=== PATIENT | female | born 1960 | race African-American/Black ===

== ENCOUNTER 2018-09-20 09:13 | Inpatient (IN) | payer OTHER ==
[2018-09-20] VITALS (10 sets, daily range): BP systolic 128–165; BP diastolic 79–132; PULSE 97–118; RESP 16–30; Ht 175.3 cm; Wt 118.9 kg
[~2018-09-20] VITALS: Ht 175.3 cm; Wt 118.9 kg
[2018-09-20] MEDS ORDERED: morphine 4 MG/ML VIAL IV STA (09:21)
[2018-09-20] MEDS ORDERED: SOD CHLORIDE 0.9% 1,000 ML IV STA (09:21)
[2018-09-20] MEDS ORDERED: ONDANSETRON 4 MG INJ IV STA ×2 (09:21→12:08)
[2018-09-20] MEDS ORDERED: ASPIRIN 81 MG TAB PO STA (09:21)
[2018-09-20] MEDS ORDERED: HEPARIN 25000 UNITS/250 ML 250 ML IV STA (11:03)
[2018-09-20] MEDS ORDERED: SOD CHLORIDE 0.9% 100 ML ONE (11:12)
[2018-09-20] MEDS ORDERED: IOHEXOL 100 ML ONE (11:12)
[2018-09-20] MEDS ORDERED: IPRATROPIUM (NEB) 0.5 MG/2.5 ML AMP INH STA (11:23)
[2018-09-20] MEDS ORDERED: ALBUTEROL 0.5% (NEB) 2.5 MG/0.5 ML AMP INH STA (11:23)
--- NOTE | 2018-09-20 11:26 | ERD ---
ER Documentation Chief Complaint Chief Complaint INTERMITTENT CHEST PAIN AND SOB STARTING LAST NIGHT HPI This is a 58-year-old female that presented to the emergency department with a sudden onset of chest pain. She indicated the pain began yesterday evening roughly 12 hours prior to arrival. She stated it was a pressure-like sensation in the midportion of her chest and epigastric region. She indicated she was able to sleep throughout the night but uncomfortably as she woke up multiple times with the pain. She states the pain would last for roughly 20 to 30 minutes and then would spontaneously resolve. She stated the pain was 10 out of 10 in intensity. She indicated the pain did not radiate to the neck arm back or jaw. The patient smokes tobacco. She denies any other past medical history she takes no medications at home. She did not take any medications for analgesic control at home. She states she never had any similar symptoms in the past. She also indicates over the past several days she has been experiencing shortness of breath. She denies any recent travel or prolonged immobilization. She denies any swelling of her lower extremities. The patient was brought to the emergency department by EMS. They administered 160 mg of aspirin. 3 sprays of nitroglycerin were given and the patient stated this provided no improvement of her pain. ROS All systems reviewed and are negative except as per history of present illness. Medications Home Meds No Active Prescriptions or Reported Meds Allergies Allergies: Coded Allergies: No Known Allergy (Unverified , 09/20/18) PMhx/Soc Medical and Surgical Hx: pt denies Medical Hx, pt denies Surgical Hx Hx Alcohol Use: Yes (OCCASIONAL) Hx Substance Use: No Hx Tobacco Use: Yes (10 CIGS/DAY) Smoking Status: Current every day smoker Physical Exam Vitals Vital Signs Date Temp Pulse Resp B/P (MAP) Pulse Ox O2 O2 Flow FiO2 Time Delivery Rate 09/20/18 97.6 104 20 160/104 95 Nasal 2.0 11:01 (122) Cannula 09/20/18 Nasal 2 09:25 Cannula 09/20/18 98.4 89 30 126/81 99 09:21 (96) Physical Exam Constitutional:Well-developed. Well-nourished. Patient appeared to be in a sig nificant amount discomfort secondary to pain HEENT:Normocephalic. Atraumatic.Pupils were equal round reactive to light. Moist mucous membranes.No tonsillar exudates. Neck: No nuchal rigidity. No lymphadenopathy. No posterior cervical spine tenderness or step-offs. Respiratory: Not using accessory muscles of respiration.Lungs were clear to auscultation bilaterally. No rhonchi. No rales. No wheezing. Cardiovascular: Regular rate regular rhythm.No murmurs. No rubs were appreciated.S1, S2 normal. Distal pulses are palpable 2+ bilaterally. GI: Abdomen was soft. Nontender. Non Distended. No pulsatile abdominal masses or bruits. No rebound. No guarding. Bowel sounds were present and normal. Muscle skeletal: Full range of motion of both the upper and lower extremities bilaterally.Normal muscle tone.No assymetrical calf tenderness or swelling. Skin: No petechia, no purpura. No lesions on the palms or the soles of the feet. No maculopapular rash. NEURO: Patient was alert, awake, orientated x3.No facial droop. Gait observed and normal with no ataxia.Speech had regular rate and rhythm. No focal neurological deficits. Result Diagram: 09/20/18 0935 09/20/18 0935 Results 24 hrs Laboratory Tests Test 09/20/18 09:35 White Blood Count 9.0 10^3/ul Red Blood Count 4.95 10^6/ul Hemoglobin 13.8 g/dl Hematocrit 42.7 % Mean Corpuscular Volume 86.3 fl Mean Corpuscular Hemoglobin 27.9 pg Mean Corpuscular Hemoglobin Concent 32.3 g/dl Red Cell Distribution Width 13.2 % Platelet Count 249 10^3/UL Mean Platelet Volume 9.7 fl Immature Granulocytes % 0.200 % Neutrophils % 77.4 % Lymphocytes % 18.1 % Monocytes % 3.8 % Eosinophils % 0.1 % Basophils % 0.4 % Nucleated Red Blood Cells % 0.0 /100WBC Immature Granulocytes # 0.020 10^3/ul Neutrophils # 7.0 10^3/ul Lymphocytes # 1.6 10^3/ul Monocytes # 0.3 10^3/ul Eosinophils # 0.0 10^3/ul Basophils # 0.0 10^3/ul Nucleated Red Blood Cells # 0.0 10^3/ul Prothrombin Time 13.4 Sec Prothrombin Time Ratio 1.0 INR International Normalized Ratio 1.01 Activated Partial Thromboplast Time 27.6 Sec Sodium Level 139 mmol/L Potassium Level 4.0 mmol/L Chloride Level 107 mmol/L Carbon Dioxide Level 24 mmol/L Anion Gap 8 Blood Urea Nitrogen 18 mg/dl Creatinine 0.86 mg/dl Est Glomerular Filtrat Rate mL/min > 60 mL/min Glucose Level 195 mg/dl Calcium Level 9.4 mg/dl Total Bilirubin 0.5 mg/dl Direct Bilirubin 0.00 mg/dl Indirect Bilirubin 0.5 mg/dl Aspartate Amino Transf (AST/SGOT) 51 IU/L Alanine Aminotransferase (ALT/SGPT) 22 IU/L Alkaline Phosphatase 105 IU/L Creatine Kinase 433 IU/L Creatine Kinase Index 8.9 Creatinine Kinase MB (Mass) 38.70 ng/ml Troponin I 1.330 ng/ml B-Type Natriuretic Peptide 681 PG/ML Total Protein 7.6 g/dl Albumin 4.0 g/dl Globulin 3.60 g/dl Albumin/Globulin Ratio 1.11 Triglycerides Level 60 mg/dl Cholesterol Level 151 mg/dl LDL Cholesterol, Calculated 95 mg/dl HDL Cholesterol 44 mg/dl Cholesterol/HDL Ratio 3.4 RATIO Lipase 47 U/L Current Medications Medications Dose Sig/[place] Start Time Status Last (Trade) Ordered Route PRN Stop Time Admin Dose Reason Admin Sodium 1,000 ml @ Q1H STAT 09/20/18 DC 09/20/18 Chloride 1,000 mls/hr IV 09:21 09:43 09/20/18 10:20 Aspirin 162 mg ONCE STAT 09/20/18 DC 09/20/18 (Aspirin) PO 09:21 09:43 09/20/18 09:23 Morphine 4 mg ONCE STAT 09/20/18 DC 09/20/18 Sulfate IV 09:21 09:42 (morphine) 09/20/18 09:23 Ondansetron 4 mg ONCE STAT 09/20/18 DC 09/20/18 HCl (Zofran IV 09:21 09:42 Inj) 09/20/18 09:23 Heparin 250 ml @ ONCE STAT 09/20/18 Sodium 10 mls/hr IV 11:03 (Porcine) 09/21/18 12:02 IV Flush 10 ml STK-MED 09/20/18 DC (NS 10 ml) ONCE .ROUTE 11:12 09/20/18 11:13 Sodium 100 ml @ ud STK-MED 09/20/18 DC Chloride ONCE .ROUTE 11:12 09/20/18 11:13 Iohexol 100 ml @ ud K-MED 09/20/18 DC ONCE .ROUTE 11:12 09/20/18 11:13 Procedures/MDM The patient presented to the emergency department with chest pain. My clinical evaluation and workup was to distinguish minor causes of chest pain from acute life threatening conditions such as myocardial infarction, pulmonary embolism, aortic dissection, esophageal rupture, cardiac tamponade. The patient was placed on a rn cardiac and continuous pulse oximetry. IV access established by nursing staff. The patient was given aspirin and had already been given nitroglycerin with no relief. Therefore the patient was given morphine for analgesia control. After which she stated her pain had improved to 3 out of 10 in intensity. Chest radiograph showed no infiltrates pneumothorax or pleural effusions however there was cardiomegaly with mild pulmonary vascular congestion. The BNP was 681. The patient was given nebulizer treatments of albuterol and Atrovent. However findings appear to be more result of unstable angina versus congestive heart failure as the patient's troponin was elevated at 1.330 and CK-MB was elevated at 38. The first EKG was performed at 9:18 AM reviewed by myself. 12 Lead EKG tracing ordered and reviewed by myself showed: Normal sinus rhythm of 91 bpm and no arrhythmia. IN interval normal. QRS duration normal. No ST segment elevation Repeat EKG was taken at 10:54 AM. 12 Lead EKG tracing ordered and reviewed by myself showed: Sinus tachycardia of 109. . Bpm and no arrhythmia. IN interval normal. QRS duration normal. No ST segment elevation No ST segment depression. No changes consistent with acute ischemia. T wave in version in the lateral leads V5 V6 I spoke with the cable layer Dr. Souza. She suggested the patient be placed on a heparin drip which was started by myself. I will obtain CT a of her chest which showed no evidence of a pulmonary embolism. Due to the persistence of the patient's pain and her unstable angina she will be going to the cardiac [facility] and will be admitted to the hospitalist in serious condition with anticipated stay of greater than [address] Brady will be the admitting physician. Patient will go to the intensive care unit. Critical Care: Time: 80 minutes Treatments/Evaluations: Close monitoring and treatment of unstable vital signs, cardiorespiratory, and neurologic status, while maintaining tight balance of fluid, respiratory, and cardiac interventions. Time does not include performing any of the above billable procedures. Departure Diagnosis: Primary Impression: Unstable angina Condition: Serious HÉCTOR GALVAN MD September 20, 2018 11:25
[2018-09-20] MEDS ORDERED: HYDROmorphONE 1 MG/ML SYG IV STA (12:08)
[2018-09-20] MEDS ORDERED: ONDANSETRON 4 MG INJ IV PRN ×2 (12:30→15:00)
[2018-09-20] MEDS ORDERED: ACETAMINOPHEN 325 MG TAB PO PRN (12:30)
[2018-09-20] MEDS ORDERED: DIPHENHYDRAMINE 50 MG CAP PO ONE (12:30)
[2018-09-20] MEDS ORDERED: morphine 2 MG INJ IV PRN ×2 (12:30→15:00)
[2018-09-20] MEDS ORDERED: ATORVASTATIN 80 MG TAB PO ONE ×2 (12:30→13:00)
[2018-09-20] MEDS ORDERED: NACL 0.9% 3 ML SYG IV SCH (12:30)
[2018-09-20] MEDS ORDERED: ACETAMINOPHEN 650 MG SUPP PR PRN (12:30)
[2018-09-20] MEDS ORDERED: DIAZEPAM 5 MG TAB PO ONE (12:30)
--- NOTE | 2018-09-20 12:36 | HP ---
Date/Time of Note Date/Time of Note DATE: 09/20/18 TIME: 12:36 Assessment/Plan VTE Prophylaxis SCD applied (from Nsg): Yes Pharmacological prophylaxis: heparin Lines/Catheters IV Catheter Type (from Nrsg): Saline Lock Assessment/Plan Hospital Course SUBJECTIVE: Seen patient in ER. Having chest pain improved with morphine and as pirin. OBJECTIVE: Vital signs-see below PHYSICAL EXAM: Constitutional: Adequately built,not in acute distress. HEENT: Head atraumatic and normocephalic. Eyes: Extraocular muscles intact. Anicteric sclerae. Pupils equal bilaterally, reactive to light. NECK: +JVD. Supple without lymph node. CHEST: Clear and good breath sounds equally. No wheezing. No rhonchi. HEART: S1, S2. Regular rate and rhythm. ABDOMEN: Soft/non tender with no rebound tenderness. Bowel sounds were present. EXTREMITIES: No cyanosis, clubbing or edema. NEUROLOGIC: Alert and oriented x3. No focal deficit. No sensory deficit. PSYCHOSOCIAL: No signs of depression. INTEGUMENTARY: No open wounds. ASSESSMENT AND PLAN:58 yo morbidly obese F w/ no medical history other than current everyday tobacco use admitted with sudden onset of chest pain, found to have NSTEMI NSTEMI -Plan is cardiac catheterization today 2 PM with -Trend troponin -2D echo -Aspirin/nitro/heparin gtt/beta-blockers/High intensity statin Morbid obesity with BMI 41.4 -Lipid panel/A1c -Weight reduction advised Possible Congestive heart failure -We will obtain 2D echo to assess EF Tobacco use -cessation advised DVT prophylaxis: On heparin protocol PUD prophylaxis: H2 blockers Rest of the management depend on hospital course. Approximately 60 m spent on this history and physical. Patient is seen in collaboration with Dr. Brady. Result Diagram: 09/20/18 0935 09/20/18 0935 Results 24hrs Laboratory Tests Test 09/20/18 09:35 White Blood Count 9.0 Red Blood Count 4.95 Hemoglobin 13.8 Hematocrit 42.7 Mean Corpuscular Volume 86.3 Mean Corpuscular Hemoglobin 27.9 L Mean Corpuscular Hemoglobin Concent 32.3 Red Cell Distribution Width 13.2 Platelet Count 249 Mean Platelet Volume 9.7 Immature Granulocytes % 0.200 Neutrophils % 77.4 H Lymphocytes % 18.1 Monocytes % 3.8 Eosinophils % 0.1 Basophils % 0.4 Nucleated Red Blood Cells % 0.0 Immature Granulocytes # 0.020 Neutrophils # 7.0 Lymphocytes # 1.6 Monocytes # 0.3 Eosinophils # 0.0 Basophils # 0.0 Nucleated Red Blood Cells # 0.0 Prothrombin Time 13.4 Prothrombin Time Ratio 1.0 INR International Normalized Ratio 1.01 Activated Partial Thromboplast Time 27.6 Sodium Level 139 Potassium Level 4.0 Chloride Level 107 Carbon Dioxide Level 24 Anion Gap 8 Blood Urea Nitrogen 18 Creatinine 0.86 Est Glomerular Filtrat Rate mL/min > 60 Glucose Level 195 Calcium Level 9.4 Total Bilirubin 0.5 Direct Bilirubin 0.00 Indirect Bilirubin 0.5 Aspartate Amino Transf (AST/SGOT) 51 H Alanine Aminotransferase (ALT/SGPT) 22 Alkaline Phosphatase 105 Creatine Kinase 433 H Creatine Kinase Index 8.9 Creatinine Kinase MB (Mass) 38.70 H Troponin I 1.330 *H B-Type Natriuretic Peptide 681 H Total Protein 7.6 Albumin 4.0 Globulin 3.60 H Albumin/Globulin Ratio 1.11 Triglycerides Level 60 Cholesterol Level 151 LDL Cholesterol, Calculated 95 HDL Cholesterol 44 Cholesterol/HDL Ratio 3.4 Lipase 47 HPI/ROS Admit Date/Time Admit Date/Time Hx of Present Illness This is a 58-year-old morbidly obese -[place] female with no reported medical history other than smoking history, was brought in by ambulance with sudden onset of chest pain that woke her up from bed this morning. Patient also had associated shortness of breath. There was no radiation of her pain. Patient denied dizziness, headache, loss of consciousness, focal deficit, fever, chills, palpitation, nausea, vomiting, abdominal pain, diarrhea or other constitutional symptoms. In the emergency room, patient was noted with initial troponin I 0.330, CK 433, CK-MB 38.70, BNP 681. Twelve-lead EKG showed sinus tachycardia at 109 with T wave inversion in the lateral leads V5 V6. Chest x-ray showed mild pulmonary vascular congestion. Chest CT negative for PE. Patient was given aspirin,morphine and started on hep drip.Cradiology consulted w/. ROS A 12 point review of system was assessed and is negative other than what is mentioned in the HPI. PMH/Family/Social Past Medical History See HPI Medications Current Medications Heparin Sodium (Porcine) 250 ml @ 10 mls/hr ONCE STAT IV Last administered on 09/20/18at 11:54; Admin Dose 10 MLS/HR; Start 09/20/18 at 11:03; Stop 09/21/18 at 12:02 Diazepam (Valium) 5 mg OC ONCE PO ; Start 09/20/18 at 12:30; Stop 09/20/18 at 12:31; Status UNV Diphenhydramine HCl (Benadryl) 50 mg OC ONCE PO ; Start 09/20/18 at 12:30; Stop 09/20/18 at 12:31; Status UNV Sodium Chloride 1,000 ml @ 75 mls/hr [id number] IV ; Start 09/20/18 at 12:27; Status UNV Atorvastatin Calcium (Lipitor) 80 mg ONCE ONCE PO ; Start 09/20/18 at 12:30; Stop 09/20/18 at 12:31; Status UNV IV Flush (NS 3 ml) 3 ml PER PROTOCOL IV ; Start 09/20/18 at 12:30; Status UNV Ondansetron HCl (Zofran Inj) 4 mg Q6H PRN IV NAUSEA/VOMITING; Start 09/20/18 at 12:30; Status UNV Acetaminophen (Tylenol Tab) 650 mg Q6H PRN PO .PAIN 1-3 OR TEMP; Start 09/20/18 at 12:30; Status UNV Acetaminophen (Tylenol Supp) 650 mg Q6H PRN NE .PAIN 1-3 OR TEMP; Start at 12:30; Status UNV Morphine Sulfate (morphine) 2 mg Q4H PRN IV .SEVERE PAIN 7-10; Start 09/20/18 at 12:30; Status UNV Famotidine (Pepcid) 20 mg Q12 PO ; Start 09/20/18 at 21:00; Status UNV Miscellaneous Information (* Miscellaneous Pharmacy Order) Discontinue current oral sulfonylur... ONCE ONCE XX ; Start 09/20/18 at 12:30; Stop 09/20/18 at 12:31; Status UNV Diagnostic Test (Pha) (Accu-Chek) 1 ea 02 XX ; Start 09/21/18 at 02:00; Status UNV Miscellaneous Information (* Miscellaneous Pharmacy Order) HYPOGLYCEMIA PROTOCOL w... ONCE ONCE XX ; Start 09/20/18 at 12:30; Stop 09/20/18 at 12:31; Status UNV Insulin Aspart (Novolog Insulin Pen) NOVOLOG *MILD* ALGORI... Q4 SC ; Start 09/05 10/24 at 13:00; Status UNV Miscellaneous Information (* Miscellaneous Pharmacy Order) Discontinue all previ... ONCE ONCE XX ; Start 09/20/18 at 12:30; Stop 09/20/18 at 12:31; Status UNV Aspirin (Aspirin) 81 mg DAILY PO ; Start 09/21/18 at 09:00; Status UNV Metoprolol Tartrate (Lopressor) 25 mg BID PO ; Start 09/20/18 at 12:30; Status UNV Atorvastatin Calcium (Lipitor) 80 mg HS PO ; Start 09/20/18 at 21:00; Status UNV Coded Allergies: No Known Allergy (Unverified , 09/20/18) Past Surgical History None Social History Current every day tobacco use. 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
[2018-09-20] MEDS ORDERED: DEXTROSE 50% 50 ML SYRINGE IV PRN ×2 (13:00)
[2018-09-20] MEDS ORDERED: GLUCOSE GEL 15 GRAM TUBE PO PRN ×2 (13:00)
[2018-09-20] MEDS ORDERED: GLUCAGON 1 MG INJ IM PRN (13:00)
[2018-09-20] MEDS ORDERED: GLUCOSE GEL 15 GRAM TUBE BUCCAL PRN (13:00)
[2018-09-20] MEDS ORDERED: LIDOCAINE 1% (MDV) 20 ML INJ ONE (13:08)
[2018-09-20] MEDS ORDERED: IODIXANOL LOCM 100 ML BTL ONE ×2 (13:08→14:39)
[2018-09-20] MEDS ORDERED: HEPARIN 1000 UNITS/ML 10 ML INJ ONE (13:22)
[2018-09-20] MEDS ORDERED: VERAPAMIL 5 MG INJ ONE (13:23)
[2018-09-20] MEDS ORDERED: NITROGLYCERIN (IC) 100 MCG/ML INJ ONE (13:23)
--- NOTE | 2018-09-20 13:37 | CONS ---
Assessment/Plan Assessment/Plan Hospital Course (Demo Recall) 58 yo with NSTEMI Impression: NSTEMI Tobacco use Morbid obesity Plan: Coronary angiography with possible angioplasty, risks and benefits discussed with her and her , she agrees to proceed, all questions answered. Echo ordered. Further plans to come into place after the angiogram Consultation Date/Type/Reason Admit Date/Time September 20, 2018 Date of Consultation: September 20, 2018 Type of Consult Cardiology Reason for Consultation NSTEMI Requesting Provider: HÉCTOR GALVAN MD Date/Time of Note DATE: 09/20/18 TIME: 13:30 Hx of Present Illness 58 yo with no significant medical history, has not seen a doctor in more than 3 years, smokes, presents with chest pressure/burning that started last night, lasted a few hours, then went away, restarted this morning and has been persistent, associated with dyspnea. Patient has received morphine in ED but still with pain. She is not active in her daily living, works in [employer] for [employer]. Constitutional: no complaints Eyes: no complaints ENT: no complaints Respiratory: no complaints Cardiovascular: chest pain Gastrointestinal: no complaints Genitourinary: no complaints Musculoskeletal: no complaints Skin: no complaints Neurologic: no complaints Endocrine: no complaints Lymphatic: no complaints Psychological: no complaints Immunologic: no complaints Past Medical History Home Meds No Active Prescriptions or Reported Meds Medications Current Medications Heparin Sodium (Porcine) 250 ml @ 10 mls/hr ONCE STAT IV Last administered on 09/20/18at 11:54; Admin Dose 10 MLS/HR; Start 09/20/18 at 11:03; Stop 09/21/18 at 12:02 Sodium Chloride 1,000 ml @ 75 mls/hr [id number] IV ; Start 09/20/18 at 12:27 IV Flush (NS 3 ml) 3 ml PER PROTOCOL IV ; Start 09/20/18 at 12:30 Ondansetron HCl (Zofran Inj) 4 mg Q6H PRN IV NAUSEA/VOMITING; Start 09/20/18 at 12:30 Acetaminophen (Tylenol Tab) 650 mg Q6H PRN PO .PAIN 1-3 OR TEMP; Start 09/20/18 at 12:30 Acetaminophen (Tylenol Supp) 650 mg Q6H PRN [place] .PAIN 1-3 OR TEMP; Start 09/20/18 at 12:30 Morphine Sulfate (morphine) 2 mg Q4H PRN IV .SEVERE PAIN 7-10; Start 09/20/18 at 12:30 Famotidine (Pepcid) 20 mg Q12 PO ; Start 09/20/18 at 21:00 Diagnostic Test (Pha) (Accu-Chek) 1 ea 02 XX ; Start 09/21/18 at 02:00 Insulin Aspart (Novolog Insulin Pen) NOVOLOG *MILD* ALGORI... Q4 SC ; Start 09/20/18 at 13:00 Aspirin (Aspirin) 81 mg DAILY PO ; Start 09/21/18 at 09:00 Metoprolol Tartrate (Lopressor) 25 mg BID PO ; Start 09/20/18 at 12:30 Atorvastatin Calcium (Lipitor) 80 mg HS PO ; Start 09/20/18 at 21:00 Miscellaneous Information 1 ea NOTE XX ; Start 09/20/18 at 13:00 Glucose (Glutose) 15 gm Q15M PRN PO DECREASED GLUCOSE; Start 09/20/18 at 13:00 Glucose (Glutose) 22.5 gm Q15M PRN PO DECREASED GLUCOSE; Start 09/20/18 at 13:00 Dextrose (D50w Syringe) 25 ml Q15M PRN IV DECREASED GLUCOSE; Start 09/20/18 at 13:00 Dextrose (D50w Syringe) 50 ml Q15M PRN IV DECREASED GLUCOSE; Start 09/20/18 at 13:00 Glucagon (Glucagen) 1 mg Q15M PRN IM DECREASED GLUCOSE; Start 09/20/18 at 13:00 Glucose (Glutose) 15 gm Q15M PRN BUCCAL DECREASED GLUCOSE; Start 09/20/18 at 13:00 Allergies: Coded Allergies: No Known Allergy (Unverified , 09/20/18) Past Surgical History Past Surgical Hx: no surgical history Family History Significant Family History: no pertinent family hx Social History Alcohol Use: rarely Smoking Status: Current every day smoker Drug Use: none Exam/Review of Systems Vital Signs Vitals Vital Signs Date Temp Pulse Resp B/P (MAP) Pulse Ox O2 O2 Flow FiO2 Time Delivery Rate 09/20/18 113 20 137/94 98 Nasal 2.0 13:10 (108) Cannula 09/20/18 32 11:54 09/20/18 97.6 11:01 Exam Constitutional: alert, oriented, well developed, other (obese) Psych: nl mood/affect Head: normocephalic, atraumatic Eyes: EOMI, nl lids, nl sclera ENMT: nl external ears & nose, nl lips & teeth Neck: supple; No jvd, No bruits Respiratory: clear to auscultation, normal air movement Cardiovascular: regular rate and rhythm, nl pulses; No murmurs/extra sounds Gastrointestinal: soft, nl liver, spleen, non-tender Musculoskeletal: nl extremities to inspection Extremities: normal pulses Neurological: nl mental status, nl speech Skin: nl turgor; No rash or lesions Labs Result Diagram: 09/20/18 0935 09/20/18 0935 Results 24hrs Laboratory Tests Test 09/20/18 09:35 White Blood Count 9.0 Red Blood Count 4.95 Hemoglobin 13.8 Hematocrit 42.7 Mean Corpuscular Volume 86.3 Mean Corpuscular Hemoglobin 27.9 L Mean Corpuscular Hemoglobin Concent 32.3 Red Cell Distribution Width 13.2 Platelet Count 249 Mean Platelet Volume 9.7 Immature Granulocytes % 0.200 Neutrophils % 77.4 H Lymphocytes % 18.1 Monocytes % 3.8 Eosinophils % 0.1 Basophils % 0.4 Nucleated Red Blood Cells % 0.0 Immature Granulocytes # 0.020 Neutrophils # 7.0 Lymphocytes # 1.6 Monocytes # 0.3 Eosinophils # 0.0 Basophils # 0.0 Nucleated Red Blood Cells # 0.0 Prothrombin Time 13.4 Prothrombin Time Ratio 1.0 INR International Normalized Ratio 1.01 Activated Partial Thromboplast Time 27.6 Sodium Level 139 Potassium Level 4.0 Chloride Level 107 Carbon Dioxide Level 24 Anion Gap 8 Blood Urea Nitrogen 18 Creatinine 0.86 Est Glomerular Filtrat Rate mL/min > 60 Glucose Level 195 Calcium Level 9.4 Total Bilirubin 0.5 Direct Bilirubin 0.00 Indirect Bilirubin 0.5 Aspartate Amino Transf (AST/SGOT) 51 H Alanine Aminotransferase (ALT/SGPT) 22 Alkaline Phosphatase 105 Creatine Kinase 433 H Creatine Kinase Index 8.9 Creatinine Kinase MB (Mass) 38.70 H Troponin I 1.330 *H B-Type Natriuretic Peptide 681 H Total Protein 7.6 Albumin 4.0 Globulin 3.60 H Albumin/Globulin Ratio 1.11 Triglycerides Level 60 Cholesterol Level 151 LDL Cholesterol, Calculated 95 HDL Cholesterol 44 Cholesterol/HDL Ratio 3.4 Lipase 47 Imaging Imaging Initial ekg with nsr at 91 bpm, st elevation of 1 mm in V1, subtle ST depressions in inferior and lateral leads. Repeat ekg with sinus tachycardia at 109 bpm, now with 1/[address] elevation in V2-V4 as well as 1 mm in V1, and subtle reciprocal changes. Medications Medications Current Medications Heparin Sodium (Porcine) 250 ml @ 10 mls/hr ONCE STAT IV Last administered on 09/20/18at 11:54; Admin Dose 10 MLS/HR; Start 09/20/18 at 11:03; Stop 09/21/18 at 12:02 Sodium Chloride 1,000 ml @ 75 mls/hr [id number] IV ; Start 09/20/18 at 12:27 IV Flush (NS 3 ml) 3 ml PER PROTOCOL IV ; Start 09/20/18 at 12:30 Ondansetron HCl (Zofran Inj) 4 mg Q6H PRN IV NAUSEA/VOMITING; Start 09/20/18 at 12:30 Acetaminophen (Tylenol Tab) 650 mg Q6H PRN PO .PAIN 1-3 OR TEMP; Start 09/20/18 at 12:30 Acetaminophen (Tylenol Supp) 650 mg Q6H PRN [place] .PAIN 1-3 OR TEMP; Start 09/20/18 at 12:30 Morphine Sulfate (morphine) 2 mg Q4H PRN IV .SEVERE PAIN 7-10; Start 09/20/18 at 12:30 Famotidine (Pepcid) 20 mg Q12 PO ; Start 09/20/18 at 21:00 Diagnostic Test (Pha) (Accu-Chek) 1 ea 02 XX ; Start 09/21/18 at 02:00 Insulin Aspart (Novolog Insulin Pen) NOVOLOG *MILD* ALGORI... Q4 SC ; Start 09/20/18 at 13:00 Aspirin (Aspirin) 81 mg DAILY PO ; Start 09/21/18 at 09:00 Metoprolol Tartrate (Lopressor) 25 mg BID PO ; Start 09/20/18 at 12:30 Atorvastatin Calcium (Lipitor) 80 mg HS PO ; Start 09/20/18 at 21:00 Miscellaneous Information 1 ea NOTE XX ; Start 09/20/18 at 13:00 Glucose (Glutose) 15 gm Q15M PRN PO DECREASED GLUCOSE; Start 09/20/18 at 13:00 Glucose (Glutose) 22.5 gm Q15M PRN PO DECREASED GLUCOSE; Start 09/20/18 at 13:00 Dextrose (D50w Syringe) 25 ml Q15M PRN IV DECREASED GLUCOSE; Start 09/20/18 at 13:00 Dextrose (D50w Syringe) 50 ml Q15M PRN IV DECREASED GLUCOSE; Start 09/20/18 at 13:00 Glucagon (Glucagen) 1 mg Q15M PRN IM DECREASED GLUCOSE; Start 09/20/18 at 13:00 Glucose (Glutose) 15 gm Q15M PRN BUCCAL DECREASED GLUCOSE; Start 09/20/18 at 13:00 JOMAR SOL September 20, 2018 13:37
[2018-09-20] MEDS ORDERED: MIDAZOLAM 1 MG/ML 2 ML INJ ONE (13:45)
[2018-09-20] MEDS ORDERED: TICAGRELOR 90 MG TABLET ONE (14:44)
[2018-09-20] MEDS ORDERED: AL HYDROX/MG HYDROX/SIMETH 30 ML CUP PO PRN (15:00)
--- NOTE | 2018-09-20 15:04 | OPR ---
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 Procedure Description Findings: LM - normal LAD 99% mid lesion with BLANCA 1 flow LCX nl Ramus nl RCA - dominant and not directly engaged, but angiographically normal LVEDP - elevated LVEF - 30% with large area of anterolateral, apical, and inferoapical akinesis Informed consent obtained. Patient brought to the phlebotomist medical lab assistant urgently. Versed given for moderate sedation. Using modified seldinger technique, the right radial artery was accessed, and 6F sheath placed. Additional heparin given IV after ACT checked, and verapamil and nitroglycerin given. Baldwin catheter advanced over J wire, engaged the LM. Images obtained in multiple projections. Next a JR4 advanced but would not engage, provided a nonselective shot of the RCA demonstrating no significant lesions. All catheters changed over a long J wire. At this point I decided to proceed with PCI of the LAD. An FL 3.5 guide engaged the left main, additional heparin given. The wire was advanced down the vessel,a 2.5x12 balloon inflated twice in the lesion, then it was stented with a 3.25x23 mm Xience stent, and postdilated with a 3.5 x 15 mm balloon twice. Angiography performed in multiple views demonstrating good apposition of the stent and no dissection. Then another shot of the RCA performed, with a Hung Right, which also did not engage. A pigtail catheter crossed the LV, pressures measured, LV gram performed with injection of contrast, and then a pullback gradient measured. Nitro given through the sidearm of the sheath, and then it was removed and replaced with a TR band. Patient left the room in stable condition. JOMAR SOL September 20, 2018 15:04
[2018-09-20] MEDS: METOPROLOL 25 MG TAB PO SCH ×2 (15:32→20:41)
[2018-09-20] MEDS: INSULIN ASPART [NOVOLOG] 3 ML PEN SC SCH ×3 (15:33→20:38)
[2018-09-20] MEDS: LOSARTAN 25 MG TAB PO SCH ×2 (17:20→20:40)
[2018-09-20] MEDS: SOD CHLORIDE 0.9% 1,000 ML IV SCH (17:43)
[2018-09-20] MEDS: FAMOTIDINE 20 MG TAB PO SCH (20:41)
[2018-09-20] MEDS: TICAGRELOR 90 MG TABLET PO SCH (20:44)
[2018-09-20] MEDS ORDERED: ATORVASTATIN 80 MG TAB PO SCH ×2 (21:00)
[2018-09-20] MEDS ORDERED: LORAZEPAM 0.5 MG TAB PO ONE (22:30)
[2018-09-20] MEDS ORDERED: NITROGLYCERIN (SL) 0.4 MG TAB ONE (23:31)
[2018-09-21] VITALS (18 sets, daily range): BP systolic 84–133; BP diastolic 48–103; PULSE 85–123; RESP 16–27
[2018-09-21] MEDS ORDERED: NITROGLYCERIN (SL) 0.4 MG TAB SL ONE
[2018-09-21] MEDS ORDERED: FUROSEMIDE 40 MG INJ IV ONE
[2018-09-21] MEDS: INSULIN ASPART [NOVOLOG] 3 ML PEN SC SCH ×4 (01:38→13:00)
[2018-09-21] MEDS: SOD CHLORIDE 0.9% 1,000 ML IV SCH ×2 (01:40→05:39)
[2018-09-21] MEDS ORDERED: ACCU-CHEK XX SCH (02:00)
[2018-09-21] MEDS ORDERED: ASPIRIN (EC) 81 MG TAB PO SCH (09:00)
[2018-09-21] MEDS ORDERED: ALBUTEROL/IPRATROPIUM (NEB) 3 ML AMP HHN SCH (09:00)
[2018-09-21] MEDS ORDERED: ASPIRIN 81 MG TAB PO SCH (09:00)
--- NOTE | 2018-09-21 09:12 | RADRPT ---
Echocardiogram Report Patient Name: JUAN MARCELINOPatient ID: [id number] : 1960 (58y 6m)Study Date: 09/20/2018 12:54:17 PM Gender: FAccession #: [id number] Tech: LE Location: [facility] Ref.Physician: KONSTANTIN SALDIVAR Height(Cm): BSA: Weight(Kg): Quality: Technically Difficult StudyOrder Physician: KONSTANTIN SALDIVAR Account #: Procedures: Echocardiographic Report: Transthoracic echocardiogram with complete 2D, M-Mode, and doppler examination. Indications: Chest Pain. Measurements: 2D/M Mode Doppler Measurement Value Normal Range Measurement Value Normal Range LVIDd 2D 4.4 [ 3.8 - 5.2 ] cm AV Mean William 0.8 [ 70.0 - 90.0 ] cm/sec LVIDs 2D 4.0 [ 2.2 - 3.5 ] cm AV Mean PG 3.0 [ 2.0 - 4.0 ] mmHg LVPWd 2D 1.3 [ 0.6 - 0.9 ] cm AV Peak William 1.1 [ 100.0 - 170.0 ] cm/sec IVSd 2D 1.3 [ 0.6 - 0.9 ] cm AV Peak PG 5.0 [ 2.0 - 9.0 ] mmHg EF 2D 21.3 [ 54.0 - 74.0 ] percent AV VTI 17.0 cm LVOT Diam 1.9 [ 2.1 - 2.5 ] cm LVOT Peak William 0.7 [ 70.0 - 110.0 ] cm/sec LVOT Peak PG 2.0 [ 2.0 - 6.0 ] mmHg MV E Peak William 0.8 [ 60.0 - 130.0 ] cm/sec MV A Peak William 0.7 [ 100.0 - 120.0 ] cm/sec MV E/A 1.2 [ 0.8 - 1.5 ] ratio MV Decel Time 134 [ 104 - 258 ] msec Lat E` William 0.1 [ 10.0 - 15.0 ] cm/sec Lateral E/E` 15.1 [ 1.0 - 2.0 ] ratio Med E` William 0.0 cm/sec MV E/A 1.2 [ 0.8 - 1.5 ] ratio TR Peak William 3.4 [ 100.0 - 280.0 ] cm/sec TR Peak PG 47.0 mmHg PV Peak William 0.7 [ 40.0 - 80.0 ] cm/sec PV Peak PG 2.0 mmHg Findings: Left Ventricle: Mild concentric left ventricular hypertrophy. Moderate left ventricular systolic dysfunction. Ejection fraction is visually estimated at 35 %. Tissue Doppler/Mitral Doppler indices are consistent with pseudonormalization with mildly elevated left atrial pressure (Stage II diastolic dysfunction). These segments of the LV are akinetic apical anterior segment, inferoseptum mid segment, anteroseptum mid segment, apical cap and apical septum segment. Right Ventricle: Normal right ventricular size. Normal right ventricular systolic function. Left Atrium: The left atrium is normal in size. Right Atrium: The right atrium is normal in size. Atrial Septum: Normal atrial septum. Mitral Valve: Normal appearance of the mitral valve. Mild mitral valve regurgitation. Aortic Valve: No hemodynamically significant aortic stenosis by doppler. Aortic sclerosis without significant stenosis. Trileaflet aortic valve. No aortic regurgitation. Tricuspid Valve: Normal appearance of the tricuspid valve. Right ventricular systolic pressure is consistent with moderate pulmonary hypertension. Estimated peak PA systolic pressure 50 mmHg. There is trace tricuspid regurgitation. Pulmonic Valve: Pulmonic valve not well visualized. Pericardium: Normal pericardium with no significant pericardial effusion. Aorta: Normal aortic root. IVC: Normal size and normal respiratory collapse consistent with normal right atrial pressure. Conclusions: Mild concentric left ventricular hypertrophy with moderately reduced systolic function and regional wall motion abnormalities as described. Trace tricuspid regurgitation with moderate pulmonary hypertension. Aortic sclerosis with no stenosis. Mild mitral regurgitation. Electronically Signed By: Ryanne Souza 2018-09-21 09:11:30 PDT
[2018-09-21] MEDS: FAMOTIDINE 20 MG TAB PO SCH (09:21)
[2018-09-21] MEDS: METOPROLOL 25 MG TAB PO SCH (09:21)
[2018-09-21] MEDS: LOSARTAN 25 MG TAB PO SCH (09:21)
[2018-09-21] MEDS: TICAGRELOR 90 MG TABLET PO SCH (09:22)
--- NOTE | 2018-09-21 10:16 | CONS ---
Assessment/Plan Assessment/Plan Hospital Course (Demo Recall) 58 yo with NSTEMI, subtotal occlusion of the mid LAD opened with a drug-eluting stent. LVEF reduced at 35%. Patient had symptoms of heart failure last night, received one dose of furosemide, but fluids were continued. Clinically patient better this am. Impression: NSTEMI due to LAD subtotal occlusion, s/p PCI/stent mid LAD Acute systolic and diastolic heart failure, clinically improved Tobacco abuse Obesity Pulmonary hypertension Plan: Continue asa, ticagrelor, statin Carvedilol, losartan Would add spironolactone if bp/renal function remain stable Discussed healthy lifestyle, smoking cessation, need for ongoing meds Patient could transfer to [place] today Consultation Date/Type/Reason Admit Date/Time September 20, 2018 at 15:15 Initial Consult Date 09/20/18 Type of Consult Cardiology Requesting Provider: HÉCTOR GALVAN MD Date/Time of Note DATE: 09/21/18 TIME: 10:04 24 HR Interval Summary Free Text/Dictation Overnight was short of breath, was on bipap, breathing better this am. Denies any chest pain. Says she was feeling anxious. Exam/Review of Systems Vital Signs Vitals Vital Signs Date Temp Pulse Resp B/P (MAP) Pulse Ox O2 O2 Flow FiO2 Time Delivery Rate 09/21/18 Nasal 4.0 08:00 Cannula 09/21/18 105 16 128/85 100 08:00 (99) 09/21/18 50 04:13 09/21/18 98.4 04:00 Intake and Output 09/20/18 09/20/18 09/21/18 1515:00 23:00 07:00 IntakeIntake Total 690 ml 625 ml OutputOutput Total 1500 ml BalanceBalance 690 ml -875 ml Exam Constitutional: alert, oriented; No distress Psych: nl mood/affect Head: normocephalic, atraumatic Eyes: EOMI, nl lids ENMT: nl external ears & nose Neck: No jvd, No bruits Respiratory: diminished breath sounds Cardiovascular: regular rate and rhythm; No murmurs/extra sounds Gastrointestinal: soft, nl liver, spleen, non-tender Extremities: normal pulses, other (right radial access site intact) Neurological: nl mental status, nl speech Skin: nl turgor Labs Result Diagram: 09/21/183 09/21/18 0433 Results 24hrs Laboratory Tests Test 09/20/18 16:35 09/20/18 17:03 09/20/18 17:49 09/20/18 20:38 Creatine Kinase 3161 #H Creatine Kinase 17.3 Index Creatinine Kinase 548.00 H MB (Mass) Troponin I 64.200 *H Bedside Glucose 121 135 Activated > 180.0 *H Partial Thrombopl ast Time Test 09/20/18 21:43 09/20/18 23:10 09/21/18 01:35 09/21/18 04:33 Creatine Kinase 5579 H Creatine Kinase 13.4 Index Creatinine Kinase 746.00 H MB (Mass) Troponin I 114.000 *H 63.500 *H Blood Gas Blood arterial Specimen Source Arterial Blood 09/20/2018 11:11: Date Drawn 13 PM Arterial Blood pH 7.391 (Temp corrected) Arterial Blood 39.5 pCO2 (Temp correct) Arterial Blood 68.3 L pO2 (Temp corrected) Arterial Blood 23.4 HCO3 Arterial Blood -1.3 Base Excess Arterial Blood 93.0 L Oxygen Saturation You Test ACCEPTAB Arterial Blood Right Brachial Gas Puncture Site Arterial 1.0 Blood Carboxyhemo globin Arterial Blood 0.1 Methemoglobin Blood Gas A-a O2 142.6 H Differential Oxyhemoglobin 92.0 L Percent Blood Gas 37.0 Temperature Blood Gas Actual 32 Respiration Rate Blood Gas NASAL CANNULA Modality FiO2 36.0 Blood Gas PAULINA ROWE Notified Whom Blood Gas 09/20/2018 11:22: Notified Time 49 PM Bedside Glucose 158 White Blood Count 9.9 Red Blood Count 5.40 Hemoglobin 14.9 Hematocrit 47.5 H Mean Corpuscular 88.0 Volume Mean Corpuscular 27.6 L Hemoglobin Mean Corpuscular 31.4 L Hemoglobin Concen t Red Cell 13.2 Distribution Width Platelet Count 287 Mean Platelet 9.9 Volume Immature 0.200 Granulocytes % Neutrophils % 76.3 Lymphocytes % 15.9 Monocytes % 7.1 Eosinophils % 0.2 Basophils % 0.3 Nucleated Red 0.0 Blood Cells % Immature 0.020 Granulocytes # Neutrophils # 7.6 H Lymphocytes # 1.6 Monocytes # 0.7 Eosinophils # 0.0 Basophils # 0.0 Nucleated Red 0.0 Blood Cells # Sodium Level 142 Potassium Level 4.3 Chloride Level 104 Carbon Dioxide 32 H Level Anion Gap 6 Blood Urea 18 Nitrogen Creatinine 1.29 H Est Glomerular 52 L Filtrat Rate mL/min Glucose Level 145 # Hemoglobin A1c 6.7 H Calcium Level 9.8 Phosphorus Level 4.1 Magnesium Level 1.9 Total Bilirubin 0.7 Direct Bilirubin 0.00 Indirect 0.7 Bilirubin Aspartate Amino 621 H Transf (AST/SGOT) Alanine 79 H Aminotransferase (ALT/SGPT) Alkaline 88 Phosphatase Total Protein 6.7 Albumin 3.8 Globulin 2.90 Albumin/Globulin 1.31 Ratio Triglycerides 84 Level Cholesterol Level 163 LDL Cholesterol, 98 Calculated HDL Cholesterol 48 Cholesterol/HDL 3.3 Ratio Thyroid 1.910 Stimulating Hormone (TSH) Test 09/21/18 05:40 09/21/18 08:32 Bedside Glucose 129 137 Imaging Imaging CXR shows congestive changes Echo - EF about 35% with LAD distribution wall motion abnormalities, moderate pulmonary hypertension Medications Medications Current Medications Heparin Sodium (Porcine) 250 ml @ 10 mls/hr ONCE STAT IV Last administered on 09/20/18at 11:54; Admin Dose 10 MLS/HR; Start 09/20/18 at 11:03; Stop 09/21/18 at 12:02 IV Flush (NS 3 ml) 3 ml PER PROTOCOL IV ; Start 09/20/18 at 12:30 Acetaminophen (Tylenol Tab) 650 mg Q6H PRN PO .PAIN 1-3 OR TEMP; Start 09/20/18 at 12:30 Acetaminophen (Tylenol Supp) 650 mg Q6H PRN [place] .PAIN 1-3 OR TEMP; Start 09/20/18 at 12:30 Morphine Sulfate (morphine) 2 mg Q4H PRN IV .SEVERE PAIN 7-10; Start 09/20/18 at 12:30 Famotidine (Pepcid) 20 mg Q12 PO Last administered on 09/21/18at 09:21; Admin Dose 20 MG; Start 09/20/18 at 21:00 Diagnostic Test (Pha) (Accu-Chek) 02 XX ; Start 09/21/18 at 02:00 Insulin Aspart (Novolog Insulin Pen) NOVOLOG *MILD* ALGORI... Q4 SC Last administered on 09/21/18at 01:38; Admin Dose 1 UNIT; Start 09/20/18 at 13:00 Aspirin (Aspirin) 81 mg DAILY PO Last administered on 09/21/18at 09:20; Admin Dose 81 MG; Start 09/21/18 at 09:00 Metoprolol Tartrate (Lopressor) 25 mg BID PO Last administered on 09/21/18at 09:21; Admin Dose 25 MG; Start 09/20/18 at 12:30 Miscellaneous Information 1 ea NOTE XX ; Start 09/20/18 at 13:00 Glucose (Glutose) 15 gm Q15M PRN PO DECREASED GLUCOSE; Start 09/20/18 at 13:00 Glucose (Glutose) 22.5 gm Q15M PRN PO DECREASED GLUCOSE; Start 09/20/18 at 13:00 Dextrose (D50w Syringe) 25 ml Q15M PRN IV DECREASED GLUCOSE; Start 09/20/18 at 13:00 Dextrose (D50w Syringe) 50 ml Q15M PRN IV DECREASED GLUCOSE; Start 09/20/18 at 13:00 Glucagon (Glucagen) 1 mg Q15M PRN IM DECREASED GLUCOSE; Start 09/20/18 at 13:00 Glucose (Glutose) 15 gm Q15M PRN BUCCAL DECREASED GLUCOSE; Start 09/20/18 at 13:00 Atorvastatin Calcium (Lipitor) 80 mg HS PO ; Start 09/21/18 at 21:00 Ticagrelor (Brilinta) 90 mg BID PO Last administered on 09/21/18at 09:22; Admin Dose 90 MG; Start 09/20/18 at 21:00 Losartan Potassium (Cozaar) 25 mg BID PO Last administered on 09/21/18at 09:21; Admin Dose 25 MG; Start 09/20/18 at 15:00 Morphine Sulfate (morphine) 1 mg Q1H PRN IV PAIN; Start 09/20/18 at 15:00 Al Hydrox/Mg Hydrox/Simethicone (Mag-Al Plus) 30 ml Q4H PRN PO GASTROINTESTINAL UPSET; Start 09/20/18 at 15:00 Ondansetron HCl (Zofran Inj) 4 mg Q4H PRN IV NAUSEA AND/OR VOMITING; Start 09/20/18 at 15:00 Carvedilol (Coreg) 6.25 mg BID PO Last administered on 09/21/18at 09:21; Admin Dose 6.25 MG; Start 09/20/18 at 15:00 Albuterol/ Ipratropium (Duoneb) 3 ml Q4HWA RESP THERAPY HHN Last administered on 09/20/18at 23:43; Admin Dose 3 ML; Start 09/21/18 at 09:00 JOMAR SOL September 21, 2018 10:15
--- NOTE | 2018-09-21 10:59 | PN ---
Date/Time of Note Date/Time of Note DATE: 09/21/18 TIME: 10:55 Assessment/Plan VTE Prophylaxis Risk score (from Ns)>0 risk: 9 SCD applied (from [facility]): Yes Pharmacological prophylaxis: NA/contraindicated Pharm contraindication: low risk/ambulating Lines/Catheters IV [facility] Type ([facility] Peripheral IV Urinary Cath still in place: No Assessment/Plan Hospital Course SUBJECTIVE:s/p PCI. In icu.no cp. OBJECTIVE: Vital signs-see below PHYSICAL EXAM: Constitutional: Adequately built,not in acute distress. HEENT: Head atraumatic and normocephalic. Eyes: Extraocular muscles intact. Anicteric sclerae. Pupils equal bilaterally, reactive to light. NECK: +JVD. Supple without lymph node. CHEST: Clear and good breath sounds equally. No wheezing. No rhonchi. HEART: S1, S2. Regular rate and rhythm. ABDOMEN: Soft/non tender with no rebound tenderness. Bowel sounds were present. EXTREMITIES: Rt radial access site intact. No cyanosis, clubbing or edema. NEUROLOGIC: Alert and oriented x3. No focal deficit. No sensory deficit. PSYCHOSOCIAL: No signs of depression. INTEGUMENTARY: No open wounds. ASSESSMENT AND PLAN:58 yo morbidly obese F w/ no medical history other than current everyday tobacco use admitted with sudden onset of chest pain, found to have NSTEMI.. NSTEMI -s/p PCI/stent mid LAD 09/20 with -cont.DAPT/statin Acute systolic and diastolic heart failure -EF 30% -clinically stable -cont.BB (coreg started=>DC Lopressor)/ladactone/acei New onset DM2 -stbale glucose control -ISS -Metformin on dc (48hrs after cath) Pulmonary HTN -Monitor Morbid obesity with BMI 41.4 -Lipid panel/A1c -Weight reduction advised Tobacco use -cessation advised DVT prophylaxis: SCDs PUD prophylaxis: H2 blockers Dispo:Tx to tele. Pt w/[employer] insurance.CM to arrange [facility]. Medically stable for ambulance transport and tele unit. Patient is seen in collaboration with Dr. Brady. Result Diagram: 09/21/18 0433 09/21/18 0433 Results 24hrs Laboratory Tests Test 09/20/18 16:35 09/20/18 17:03 09/20/18 17:49 09/20/18 20:38 Creatine Kinase 3161 #H Creatine Kinase 17.3 Index Creatinine Kinase 548.00 H MB (Mass) Troponin I 64.200 *H Bedside Glucose 121 135 Activated > 180.0 *H Partial Thrombopl ast Time Test 09/20/18 21:43 09/20/18 23:10 09/21/18 01:35 09/21/18 04:33 Creatine Kinase 5579 H Creatine Kinase 13.4 Index Creatinine Kinase 746.00 H MB (Mass) Troponin I 114.000 *H 63.500 *H Blood Gas Blood arterial Specimen Source Arterial Blood 09/20/2018 11:11: Date Drawn 13 PM Arterial Blood pH 7.391 (Temp corrected) Arterial Blood 39.5 pCO2 (Temp correct) Arterial Blood 68.3 L pO2 (Temp corrected) Arterial Blood 23.4 HCO3 Arterial Blood -1.3 Base Excess Arterial Blood 93.0 L Oxygen Saturation You Test ACCEPTAB Arterial Blood Right Brachial Gas Puncture Site Arterial 1.0 Blood Carboxyhemo globin Arterial Blood 0.1 Methemoglobin Blood Gas A-a O2 142.6 H Differential Oxyhemoglobin 92.0 L Percent Blood Gas 37.0 Temperature Blood Gas Actual 32 Respiration Rate Blood Gas NASAL CANNULA Modality FiO2 36.0 Blood Gas PAULINA ROWE Notified Whom Blood Gas 09/20/2018 11:22: Notified Time 49 PM Bedside Glucose 158 White Blood Count 9.9 Red Blood Count 5.40 Hemoglobin 14.9 Hematocrit 47.5 H Mean Corpuscular 88.0 Volume Mean Corpuscular 27.6 L Hemoglobin Mean Corpuscular 31.4 L Hemoglobin Concen t Red Cell 13.2 Distribution Width Platelet Count 287 Mean Platelet 9.9 Volume Immature 0.200 Granulocytes % Neutrophils % 76.3 Lymphocytes % 15.9 Monocytes % 7.1 Eosinophils % 0.2 Basophils % 0.3 Nucleated Red 0.0 Blood Cells % Immature 0.020 Granulocytes # Neutrophils # 7.6 H Lymphocytes # 1.6 Monocytes # 0.7 Eosinophils # 0.0 Basophils # 0.0 Nucleated Red 0.0 Blood Cells # Sodium Level 142 Potassium Level 4.3 Chloride Level 104 Carbon Dioxide 32 H Level Anion Gap 6 Blood Urea 18 Nitrogen Creatinine 1.29 H Est Glomerular 52 L Filtrat Rate mL/min Glucose Level 145 # Hemoglobin A1c 6.7 H Calcium Level 9.8 Phosphorus Level 4.1 Magnesium Level 1.9 Total Bilirubin 0.7 Direct Bilirubin 0.00 Indirect 0.7 Bilirubin Aspartate Amino 621 H Transf (AST/SGOT) Alanine 79 H Aminotransferase (ALT/SGPT) Alkaline 88 Phosphatase Total Protein 6.7 Albumin 3.8 Globulin 2.90 Albumin/Globulin 1.31 Ratio Triglycerides 84 Level Cholesterol Level 163 LDL Cholesterol, 98 Calculated HDL Cholesterol 48 Cholesterol/HDL 3.3 Ratio Thyroid 1.910 Stimulating Hormone (TSH) Test 09/21/18 05:40 09/21/18 08:32 Bedside Glucose 129 137 Exam/Review of Systems Exam Vitals Vital Signs Date Temp Pulse Resp B/P (MAP) Pulse Ox O2 O2 Flow FiO2 Time Delivery Rate 09/21/18 Nasal 4.0 08:00 Cannula 09/21/18 105 16 128/85 100 08:00 (99) 09/21/18 50 04:13 09/21/18 98.4 04:00 Intake and Output 09/20/18 09/20/18 09/21/18 1515:00 23:00 07:00 IntakeIntake Total 690 ml 625 ml OutputOutput Total 1500 ml BalanceBalance 690 ml -875 ml Results Results 24hrs Laboratory Tests Test 09/20/18 16:35 09/20/18 17:03 09/20/18 17:49 09/20/18 20:38 Creatine Kinase 3161 #H Creatine Kinase 17.3 Index Creatinine Kinase 548.00 H MB (Mass) Troponin I 64.200 *H Bedside Glucose 121 135 Activated > 180.0 *H Partial Thrombopl ast Time Test 09/20/18 21:43 09/20/18 23:10 09/21/18 01:35 09/21/18 04:33 Creatine Kinase 5579 H Creatine Kinase 13.4 Index Creatinine Kinase 746.00 H MB (Mass) Troponin I 114.000 *H 63.500 *H Blood Gas Blood arterial Specimen Source Arterial Blood 09/20/2018 11:11: Date Drawn 13 PM Arterial Blood pH 7.391 (Temp corrected) Arterial Blood 39.5 pCO2 (Temp correct) Arterial Blood 68.3 L pO2 (Temp corrected) Arterial Blood 23.4 HCO3 Arterial Blood -1.3 Base Excess Arterial Blood 93.0 L Oxygen Saturation You Test ACCEPTAB Arterial Blood Right Brachial Gas Puncture Site Arterial 1.0 Blood Carboxyhemo globin Arterial Blood 0.1 Methemoglobin Blood Gas A-a O2 142.6 H Differential Oxyhemoglobin 92.0 L Percent Blood Gas 37.0 Temperature Blood Gas Actual 32 Respiration Rate Blood Gas NASAL CANNULA Modality FiO2 36.0 Blood Gas PAULINA ROWE Notified Whom Blood Gas 09/20/2018 11:22: Notified Time 49 PM Bedside Glucose 158 White Blood Count 9.9 Red Blood Count 5.40 Hemoglobin 14.9 Hematocrit 47.5 H Mean Corpuscular 88.0 Volume Mean Corpuscular 27.6 L Hemoglobin Mean Corpuscular 31.4 L Hemoglobin Concen t Red Cell 13.2 Distribution Width Platelet Count 287 Mean Platelet 9.9 Volume Immature 0.200 Granulocytes % Neutrophils % 76.3 Lymphocytes % 15.9 Monocytes % 7.1 Eosinophils % 0.2 Basophils % 0.3 Nucleated Red 0.0 Blood Cells % Immature 0.020 Granulocytes # Neutrophils # 7.6 H Lymphocytes # 1.6 Monocytes # 0.7 Eosinophils # 0.0 Basophils # 0.0 Nucleated Red 0.0 Blood Cells # Sodium Level 142 Potassium Level 4.3 Chloride Level 104 Carbon Dioxide 32 H Level Anion Gap 6 Blood Urea 18 Nitrogen Creatinine 1.29 H Est Glomerular 52 L Filtrat Rate mL/min Glucose Level 145 # Hemoglobin A1c 6.7 H Calcium Level 9.8 Phosphorus Level 4.1 Magnesium Level 1.9 Total Bilirubin 0.7 Direct Bilirubin 0.00 Indirect 0.7 Bilirubin Aspartate Amino 621 H Transf (AST/SGOT) Alanine 79 H Aminotransferase (ALT/SGPT) Alkaline 88 Phosphatase Total Protein 6.7 Albumin 3.8 Globulin 2.90 Albumin/Globulin 1.31 Ratio Triglycerides 84 Level Cholesterol Level 163 LDL Cholesterol, 98 Calculated HDL Cholesterol 48 Cholesterol/HDL 3.3 Ratio Thyroid 1.910 Stimulating Hormone (TSH) Test 09/21/18 05:40 09/21/18 08:32 Bedside Glucose 129 137 Medications Medication Current Medications Heparin Sodium (Porcine) 250 ml @ 10 mls/hr ONCE STAT IV Last administered on 09/20/18at 11:54; Admin Dose 10 MLS/HR; Start 09/20/18 at 11:03; Stop 09/21/18 at 12:02 IV Flush (NS 3 ml) 3 ml PER PROTOCOL IV ; Start 09/20/18 at 12:30 Acetaminophen (Tylenol Tab) 650 mg Q6H PRN PO .PAIN 1-3 OR TEMP; Start 09/20/18 at 12:30 Acetaminophen (Tylenol Supp) 650 mg Q6H PRN SD .PAIN 1-3 OR TEMP; Start 09/20/18 at 12:30 Morphine Sulfate (morphine) 2 mg Q4H PRN IV .SEVERE PAIN 7-10; Start 09/20/18 at 12:30 Famotidine (Pepcid) 20 mg Q12 PO Last administered on 09/21/18at 09:21; Admin Dose 20 MG; Start 09/20/18 at 21:00 Diagnostic Test (Pha) (Accu-Chek) 1 ea 02 XX ; Start 09/21/18 at 02:00 Insulin Aspart (Novolog Insulin Pen) NOVOLOG *MILD* ALGORI... Q4 SC Last administered on 09/21/18at 01:38; Admin Dose 1 UNIT; Start 09/20/18 at 13:00 Aspirin (Aspirin) 81 mg DAILY PO Last administered on 09/21/18at 09:20; Admin Dose 81 MG; Start 09/21/18 at 09:00 Metoprolol Tartrate (Lopressor) 25 mg BID PO Last administered on 09/21/18at 09:21; Admin Dose 25 MG; Start 09/20/18 at 12:30 Miscellaneous Information 1 ea NOTE XX ; Start 09/20/18 at 13:00 Glucose (Glutose) 15 gm Q15M PRN PO DECREASED GLUCOSE; Start 09/20/18 at 13:00 Glucose (Glutose) 22.5 gm Q15M PRN PO DECREASED GLUCOSE; Start 09/20/18 at 13:00 Dextrose (D50w Syringe) 25 ml Q15M PRN IV DECREASED GLUCOSE; Start 09/20/18 at 13:00 Dextrose (D50w Syringe) 50 ml Q15M PRN IV DECREASED GLUCOSE; Start 09/20/18 at 13:00 Glucagon (Glucagen) 1 mg Q15M PRN IM DECREASED GLUCOSE; Start 09/20/18 at 13:00 Glucose (Glutose) 15 gm Q15M PRN BUCCAL DECREASED GLUCOSE; Start 09/20/18 at 13:00 Atorvastatin Calcium (Lipitor) 80 mg HS PO ; Start 09/21/18 at 21:00 Ticagrelor (Brilinta) 90 mg BID PO Last administered on 09/21/18at 09:22; Admin Dose 90 MG; Start 09/20/18 at 21:00 Losartan Potassium (Cozaar) 25 mg BID PO Last administered on 09/21/18at 09:21; Admin Dose 25 MG; Start 09/20/18 at 15:00 Morphine Sulfate (morphine) 1 mg Q1H PRN IV PAIN; Start 09/20/18 at 15:00 Al Hydrox/Mg Hydrox/Simethicone (Mag-Al Plus) 30 ml Q4H PRN PO GASTROINTESTINAL UPSET; Start 09/20/18 at 15:00 Ondansetron HCl (Zofran Inj) 4 mg Q4H PRN IV NAUSEA AND/OR VOMITING; Start 09/20/18 at 15:00 Carvedilol (Coreg) 6.25 mg BID PO Last administered on 09/21/18at 09:21; Admin Dose 6.25 MG; Start 09/20/18 at 15:00 Levalbuterol (Xopenex Neb) 1.25 mg Q6H RESP THERAPY HHN ; Start 09/21/18 at 14:00 Ipratropium Reading (Atrovent 0.02% (Neb)) 0.5 mg Q6H RESP THERAPY HHN ; Start 09/21/18 at 14:00 KONSTANTIN SALDIVAR NP September 21, 2018 10:59
[2018-09-21] MEDS ORDERED: ALPRAZOLAM 0.5 MG TAB PO PRN (11:00)
--- NOTE | 2018-09-21 11:01 | PDOCDIS ---
Discharge Instructions CONDITION [id number] Patient Condition: [id number] Stable HOME CARE INSTRUCTIONS: Will Your diet recommendation is: [id number] CARBOHYDRATE CONTROLLED/LOW CHOLESTEROL DIET FOLLOW UP/APPOINTMENTS Follow-up Plan TRANSFER TO KONSTANTIN MIGUEL NP September 21, 2018 11:01
--- NOTE | 2018-09-21 12:45 | RADRPT ---
Vent Rate: 107 bpm RR Interval: 0 msec MS Interval: 136 msec QRS Duration: 72 msec QT Interval: 334 msec QTC Interval: 445 msec P-R-T [place]: 78 - 64 - 48 degrees Age and gender specific ECG analysis Sinus tachycardia Anterior infarct , possibly acute Lateral injury pattern ACUTE [place] Abnormal ECG Electronically Signed By: Lincoln Sullivan
[2018-09-21] MEDS ORDERED: IPRATROPIUM (NEB) 0.5 MG/2.5 ML AMP HHN SCH (14:00)
[2018-09-21] MEDS ORDERED: LEVALBUTEROL (NEB) 1.25 MG/0.5 ML AMP HHN SCH (14:00)
--- NOTE | 2018-09-21 14:12 | DS ---
Date/Time of Note Date/Time of Note DATE: 09/21/18 TIME: 14:11 Discharge Summary Admission/Discharge Info Admit Date/Time September 20, 2018 at 15:15 Discharge Date/Time Discharge Diagnosis NSTEMI -s/p PCI/stent mid LAD 09/20 with Acute systolic and diastolic heart failure -EF 30% New onset DM2 Pulmonary HTN Morbid obesity with BMI 41.4 Tobacco use Patient Condition: Stable Procedures Operative Report Procedure Date: September 20, 2018 Preoperative Diagnosis NSTEMI with active chest pain Postoperative Diagnosis NSTEMI with subtotal occlusion of the LAD Operation/Procedure Performed coronary angiogram, left heart cath, left ventriculogram, moderate sedation, urgent PCI and stenting of the mid LAD Surgeon: Hx of Present Illness This is a 58-year-old morbidly obese -[place] female with no reported medical history other than smoking history, was brought in by ambulance with sudden onset of chest pain that woke her up from bed this morning. Patient also had associated shortness of breath. There was no radiation of her pain. Patient denied dizziness, headache, loss of consciousness, focal deficit, fever, chills, palpitation, nausea, vomiting, abdominal pain, diarrhea or other constitutional symptoms. In the emergency room, patient was noted with initial troponin I 0.330, CK 433, CK-MB 38.70, BNP 681. Twelve-lead EKG showed sinus tachycardia at 109 with T wave inversion in the lateral leads V5 V6. Chest x-ray showed mild pulmonary vascular congestion. Chest CT negative for PE. Patient was given aspirin,morphine and started on hep drip.Cradiology consulted w/. Hospital Course 58 yo morbidly obese F w/ no medical history other than current everyday tobacco use admitted with sudden onset of chest pain, found to have NSTEMI.. Patient underwent PCI/stent mid LAD 09/20 with . Patient was continued on DAPT/statin. He was also noted with Acute systolic and diastolic heart failure w/EF 30%. Euvolemic and exam. She was continued on beta- blockers, Aldactone and KLAUDIA inhibitors. She was also noted with new onset diabetes with A1c 6.7 with stable blood glucose. She was maintained on insulin sliding scale with eventual recommendation of metformin on discharge 48 hours after cath. Patient was also noted with pulmonary hypertension and clinically appears stable which is deferred for outpatient follow-up. She was counseled on weight reduction with underlying morbid obesity. She was counseled on tobacco cessation. At this time, patient is medically stable for discharge to [facility] for continued cardiac care. Will be discharged when a bed is available at [facility] today. Approximately 60-minute was spent on coordinating the discharge on this patient. Patient was seen in collaboration with Dr. Brady. Follow-up Plan TRANSFER TO [facility] Primary Care Provider Care Physician No Primary Pending Labs Laboratory Tests Test 09/20/18 16:35 09/20/18 17:03 09/20/18 17:49 09/20/18 20:38 Creatine 3161 Kinase IU/L (23-200) Creatine Kinase 17.3 Index Creatinine 548.00 Kinase MB ng/ml (0.0-2.4) (Mass) Troponin I 64.200 ng/ml (0.000-0. 120) Bedside 121 135 Glucose mg/dL (70-220) mg/dL (70-220) Activated > 180.0 Partial Thrombo Sec (23.0-35.0 plast Time ) Test 09/20/18 21:43 09/20/18 23:10 09/21/18 01:35 09/21/18 04:33 Creatine 5579 Kinase IU/L (23-200) Creatine Kinase 13.4 Index Creatinine 746.00 Kinase MB ng/ml (0.0-2.4) (Mass) Troponin I 114.000 63.500 ng/ml (0.000-0. ng/ml (0.000-0 120) .120) Blood Gas Blood arterial Specimen Source Arterial Blood 09/20/2018 11:1 Date Drawn 1:13 PM Arterial Blood 7.391 (7.350-7 pH .450) (Temp corrected ) Arterial Blood 39.5 pCO2 mmhg (35-45) (Temp correct) Arterial Blood 68.3 pO2 mmHG (80-100.0 (Temp corrected ) ) Arterial Blood 23.4 HCO3 mmol/L (22.0-2 6.0) Arterial Blood -1.3 Base Excess mmol/L (-3.0-3 ) Arterial Blood 93.0 Oxygen Saturati mmHG (95.0-98. on 0) You Test ACCEPTAB Arterial Blood Right Brachial Gas Puncture Site Arterial 1.0 Blood Carboxyhe % (0.0-3.0) moglobin Arterial Blood 0.1 Methemoglobin % (0.0-1.5) Blood Gas A-a 142.6 O2 mmHg (7.0-24.0 Differential ) Oxyhemoglobin 92.0 Percent % (93.0-99.0) Blood Gas 37.0 C Temperature Blood Gas 32 Actual Respiration Rat e Blood Gas NASAL CANNULA Modality FiO2 36.0 % Blood Gas PAULINA ROWE Notified Whom Blood Gas 09/20/2018 11:2 Notified Time 2:49 PM Bedside 158 Glucose mg/dL (70-220) White Blood 9.9 Count 10^3/ul (4.8-1 0.8) Red Blood 5.40 Count 10^6/ul (4.20- 5.40) Hemoglobin 14.9 g/dl (12.0-16. 0) Hematocrit 47.5 % (37.0-47.0) Mean 88.0 Corpuscular fl (82.0-101.0 Volume ) Mean 27.6 Corpuscular pg (29.0-33.0) Hemoglobin Mean 31.4 Corpuscular g/dl (32.0-37. Hemoglobin Conc 0) ent Red Cell 13.2 Distribution % (11.5-14.5) Width Platelet Count 287 10^3/UL (140-4 15) Mean Platelet 9.9 Volume fl (7.4-10.4) Immature 0.200 Granulocytes % % (0.001-0.429 ) Neutrophils % 76.3 % (39.0-77.0) Lymphocytes % 15.9 % (15.0-51.0) Monocytes % 7.1 % (0.0-11.0) Eosinophils % 0.2 % (0.0-7.0) Basophils % 0.3 % (0.0-2.0) Nucleated Red 0.0 Blood Cells % /100WBC (0.0-0 .0) Immature 0.020 Granulocytes # 10^3/ul (0.0-0 .031) Neutrophils # 7.6 10^3/ul (1.6-7 .5) Lymphocytes # 1.6 10^3/ul (0.8-2 .9) Monocytes # 0.7 10^3/ul (0.3-0 .9) Eosinophils # 0.0 10^3/ul (0.0-0 .5) Basophils # 0.0 10^3/ul (0.0-0 .1) Nucleated Red 0.0 Blood Cells # 10^3/ul (0.0-0 .0) Sodium Level 142 mmol/L (135-14 4) Potassium 4.3 Level mmol/L (3.5-5. 1) Chloride Level 104 mmol/L (97-110 ) Carbon Dioxide 32 Level mmol/L (21-31) Anion Gap 6 (5-13) Blood Urea 18 Nitrogen mg/dl (7-20) Creatinine 1.29 mg/dl (0.44-1. 00) Est Glomerular 52 Filtrat mL/min (>60) Rate mL/min Glucose Level 145 mg/dl (70-220) Hemoglobin A1c 6.7 % (0-5.9) Calcium Level 9.8 mg/dl (8.4-10. 2) Phosphorus 4.1 Level mg/dl (2.5-4.9 ) Magnesium 1.9 Level mg/dl (1.7-2.5 ) Total 0.7 Bilirubin mg/dl (0.2-1.3 ) Direct 0.00 Bilirubin mg/dl (0.00-0. 20) Indirect 0.7 Bilirubin mg/dl (0-1.1) Aspartate Amino 621 Transf (AST/SGO IU/L (15-46) T) Alanine 79 Aminotransferas IU/L (13-69) e (ALT/SGPT) Alkaline 88 Phosphatase IU/L (42-121) Total Protein 6.7 g/dl (6.1-8.1) Albumin 3.8 g/dl (3.3-4.9) Globulin 2.90 g/dl (1.3-3.2) Albumin/Globuli 1.31 n Ratio Triglycerides 84 Level mg/dl (0-149) Cholesterol 163 Level mg/dl (100-200 ) LDL 98 mg/dl Cholesterol, Calculated HDL 48 Cholesterol mg/dl (37-92) Cholesterol/HDL 3.3 RATIO Ratio Thyroid 1.910 Stimulating MIU/L (0.465-4 Hormone (TSH) .680) Test 09/21/18 05:40 09/21/18 08:32 09/21/18 12:58 Bedside 129 137 134 Glucose mg/dL (70-220) mg/dL (70-220) mg/dL (70-220) KONSTANTIN SALDIVAR NP September 21, 2018 14:12
--- NOTE | 2018-09-21 14:30 | RADRPT ---
Vent Rate: 109 bpm RR Interval: 0 msec AR Interval: 152 msec QRS Duration: 78 msec QT Interval: 346 msec QTC Interval: 465 msec P-R-T [place]: 84 - 65 - 116 degrees Sinus tachycardia Low voltage QRS Cannot rule out Anteroseptal infarct , age undetermined Abnormal ECG Electronically Signed By: [facility]
--- NOTE | 2018-09-21 14:30 | RADRPT ---
Vent Rate: 91 bpm RR Interval: 0 msec [place] Interval: 148 msec QRS Duration: 68 msec QT Interval: 378 msec QTC Interval: 464 msec P-R-T [place]: 85 - 69 - 0 degrees Normal sinus rhythm with sinus arrhythmia Cannot rule out Anterior infarct , age undetermined Abnormal ECG Electronically Signed By: [facility]
[2018-09-21] MEDS ORDERED: ATORVASTATIN 80 MG TAB PO SCH (21:00)
== END 2018-09-21 16:50 | disposition short-term general hospital (02) | DRG 246 ==
LOC: E/R 09:13 → CCL 13:30 → SDS 13:30 → CCL 15:13 → ICU 15:15
PROVIDERS: ADMIT Family Medicine; ATTEND Family Medicine
PROC: B211YZZ Fluoroscopy of Multiple Coronary Arteries using Other Contrast (ICD-10-PCS; 2018-09-20)
PROC: B215YZZ Fluoroscopy of Left Heart using Other Contrast (ICD-10-PCS; 2018-09-20)
PROC: 027034Z Dilation of Coronary Artery, One Artery with Drug-eluting Intraluminal Device, Percutaneous Approach (ICD-10-PCS; principal; 2018-09-20 16:00)
PROC: 4A023N7 Measurement of Cardiac Sampling and Pressure, Left Heart, Percutaneous Approach (ICD-10-PCS; 2018-09-20 16:00)
DX: I21.4 Non-ST elevation (NSTEMI) myocardial infarction (principal); I50.41 Acute combined systolic (congestive) and diastolic (congestive) heart failure; I25.10 Atherosclerotic heart disease of native coronary artery without angina pectoris; E66.01 Morbid (severe) obesity due to excess calories; F17.200 Nicotine dependence, unspecified, uncomplicated; I27.20 Pulmonary hypertension, unspecified; E11.9 Type 2 diabetes mellitus without complications; Z68.41 Body mass index [BMI] 40.0-44.9, adult
CPT/HCPCS: 36415; 36600; 71045; 71275; 80053; 80061; 82550; 82553; 82803; 82962; 83036; 83690; 83735; 83880; 84100; 84443; 84484; 85025; 85610; 85730; 86850; 86900; 86901; 87081; 92928; 93005; 93306; 93458; 94640; 94664; 96374; 96375; C1725; C1874; C1887; J1170; J1644; J1815; J1940; J2250; J2270; J2405; J7030; Q9967

== ENCOUNTER 2018-11-17 15:05 | Emergency (ER) | payer OTHER ==
[~2018-11-17] VITALS: Ht 167.6 cm; Wt 80.0 kg
[2018-11-17 15:07] VITALS: Ht 167.6 cm; Wt 80.0 kg
[2018-11-17] MEDS ORDERED: ASPIRIN 81 MG TAB PO STA (18:46)
[2018-11-17] MEDS ORDERED: NITROGLYCERIN 2% 1 GM OINT PKT TD STA (18:46)
[2018-11-17] MEDS ORDERED: NITROGLYCERIN (SL) 0.4 MG TAB SL PRN (19:00)
[2018-11-17] MEDS ORDERED: FUROSEMIDE 40 MG INJ IV ONE (21:00)
--- NOTE | 2018-11-17 21:36 | ERD ---
ER Documentation Chief Complaint Chief Complaint abdominal pain with blood in urine and frequent urination started today HPI Patient is a 58-year-old female with cardiac disease, hypertension, and diabetes who presents with epigastric pain. She describes it as a "ache". She has shortness of breath as well and has been having shortness of breath with minimal exertion. She had a recent PR on September 20 and had a stent placed. She has had bilateral ankle swelling. She concern for heart attack. Her primary doctor is a [facility]. ROS All systems reviewed and are negative except as per history of present illness. Allergies Allergies: Coded Allergies: No Known Allergy (Unverified , 09/20/18) PMhx/Soc History of Surgery: No Anesthesia Reaction: No Hx Neurological Disorder: No Hx Respiratory Disorders: No Hx Cardiac Disorders: No Hx Psychiatric Problems: No Hx Miscellaneous Medical Probl: No Hx Alcohol Use: Yes (1 BEER WEEK) Hx Substance Use: No Hx Tobacco Use: Yes Smoking Status: Former smoker FmHx Family History: coronary disease Physical Exam Vitals Vital Signs Date Temp Pulse Resp B/P (MAP) Pulse Ox O2 O2 Flow FiO2 Time Delivery Rate 11/17/18 98.1 102 20 130/101 97 Nasal 21:00 (111) Cannula 11/17/18 90 19 130/91 98 Room Air 19:00 (104) 11/17/18 98.1 104 18 147/89 98 15:07 (108) Physical Exam Const: Moderate distress Head: Atraumatic Eyes: Normal Conjunctiva ENT: Normal External Ears, Nose and Mouth. Neck: Full range of motion. No meningismus. Resp: Clear to auscultation bilaterally Cardio: Regular rate and rhythm, no murmurs Abd: Soft, mild epigastric tenderness to palpation without rebound or guarding Skin: No petechiae or rashes Back: No midline or flank tenderness Ext: No cyanosis, or edema Neur: Awake and alert Psych: Normal Mood and Affect Result Diagram: 11/17/18185011/17/181850 Results 24 hrs Laboratory Tests Test 11/17/18 18:51 White Blood Count 6.5 10^3/ul Red Blood Count 4.48 10^6/ul Hemoglobin 12.2 g/dl Hematocrit 39.1 % Mean Corpuscular Volume 87.3 fl Mean Corpuscular Hemoglobin 27.2 pg Mean Corpuscular Hemoglobin Concent 31.2 g/dl Red Cell Distribution Width 14.6 % Platelet Count 294 10^3/UL Mean Platelet Volume 9.8 fl Immature Granulocytes % 0.200 % Neutrophils % 56.2 % Lymphocytes % 35.6 % Monocytes % 6.3 % Eosinophils % 1.4 % Basophils % 0.3 % Nucleated Red Blood Cells % 0.0 /100WBC Immature Granulocytes # 0.010 10^3/ul Neutrophils # 3.7 10^3/ul Lymphocytes # 2.3 10^3/ul Monocytes # 0.4 10^3/ul Eosinophils # 0.1 10^3/ul Basophils # 0.0 10^3/ul Nucleated Red Blood Cells # 0.0 10^3/ul Urine Color YELLOW Urine Clarity CLEAR Urine pH 5.0 Urine Specific [place] 1.031 Urine Ketones NEGATIVE mg/dL Urine Nitrite NEGATIVE mg/dL Urine Bilirubin NEGATIVE mg/dL Urine Urobilinogen 1+ mg/dL Urine Leukocyte Esterase NEGATIVE Paige/ul Urine Microscopic RBC 1 /HPF Urine Microscopic WBC 2 /HPF Urine Mucus MODERATE /HPF Urine Hemoglobin NEGATIVE mg/dL Urine Glucose NEGATIVE mg/dL Urine Total Protein 1+ mg/dl Sodium Level 145 mmol/L Potassium Level 3.6 mmol/L Chloride Level 110 mmol/L Carbon Dioxide Level 26 mmol/L Anion Gap 9 Blood Urea Nitrogen 22 mg/dl Creatinine 1.10 mg/dl Est Glomerular Filtrat Rate mL/min > 60 mL/min Glucose Level 124 mg/dl Calcium Level 9.2 mg/dl Total Bilirubin 0.8 mg/dl Direct Bilirubin 0.00 mg/dl Indirect Bilirubin 0.8 mg/dl Aspartate Amino Transf (AST/SGOT) 35 IU/L Alanine Aminotransferase (ALT/SGPT) 65 IU/L Alkaline Phosphatase 70 IU/L Troponin I < 0.012 ng/ml B-Type Natriuretic Peptide 5630 PG/ML Total Protein 6.7 g/dl Albumin 3.7 g/dl Globulin 3.00 g/dl Albumin/Globulin Ratio 1.23 Lipase 51 U/L Current Medications Medications Dose Sig/[place] Start Time Status Last (Trade) Ordered Route PRN Stop Time Admin Dose Reason Admin Aspirin 162 mg ONCE STAT 11/17/18 DC 11/17/18 (Aspirin) PO 18:46 19:06 11/17/18 18:47 1 inch ONCE STAT 11/17/18 DC 7/13/19 Nitroglycerin TD 18:46 19:06 11/17/18 18:47 (Nitroglyceri n 2% Oint) 1 tab Q5M UP TO 3 11/17/18 11/17/18 Nitroglycerin DOSES PRN 19:00 19:06 SL .CHEST (Nitroglyceri PAIN n (Sl Tab) 0.4 Mg) Furosemide 40 mg ONCE ONCE 11/17/18 DC 11/17/18 (Lasix) IV 21:00 21:17 11/17/18 21:01 Procedures/MDM EKG read by me: Rate/Rhythm: Regular rate and rhythm at a normal rate Intervals: Normal Impression: No evidence of ischemia or arrhythmia Chest x-ray read by radiology. Patient is a 58-year-old female who presents with acute chest pain and shortness of breath. I am concerned about acute coronary syndrome. I doubt pneumonia, pneumothorax, pulmonary embolism, or aortic dissection. I doubt cholecystitis or pancreatitis. The patient was given aspirin, nitroglycerin, and Lasix. I spoke with Dr. Larsen from [facility] who accepted the patient with an authorization number of [id number]. The patient will be transferred by ambulance to [facility]. Departure Diagnosis: Primary Impression: Epigastric pain Additional Impression: Dyspnea Dyspnea type: unspecified Qualified Codes: R06.00 - Dyspnea, unspecified Condition: DEBBIE Pantoja MD Nov 17, 2018 21:36
[2018-11-17 22:00] VITALS: BP 134/96; PULSE 97; RESP 25
== END 2018-11-17 21:59 | disposition short-term general hospital (02) ==
LOC: E/R 15:05
DX: R10.13 Epigastric pain (principal); R06.00 Dyspnea, unspecified; I10 Essential (primary) hypertension; E11.9 Type 2 diabetes mellitus without complications; Z87.891 Personal history of nicotine dependence
CPT/HCPCS: 36415; 71045; 80053; 81001; 83690; 83880; 84484; 85025; 93005; 96374; 99285; J1940